=== PATIENT | female | born 1950 | race Caucasian/White ===

== ENCOUNTER → 2019-10-22 | Outpatient (CLI) | payer MEDICARE, OTHER | LOC: VAS 15:37 → RAD 15:45 | DX: I08.1 Rheumatic disorders of both mitral and tricuspid valves (principal) ==

== ENCOUNTER → 2020-10-07 | Outpatient (CLI) | payer MEDICARE, OTHER | LOC: RAD 07:10 | DX: N18.32 Chronic kidney disease, stage 3b (principal); D69.6 Thrombocytopenia, unspecified; K76.0 Fatty (change of) liver, not elsewhere classified; N85.00 Endometrial hyperplasia, unspecified ==